=== PATIENT | female | born 1960 | race African-American/Black ===

== ENCOUNTER 2020-01-28 18:33 | Emergency (ER) | payer OTHER ==
[~2020-01-28] VITALS: Ht 165.1 cm; Wt 69.9 kg
[2020-01-28] MEDS ORDERED: ANAPRIL (19:35)
[2020-01-28] MEDS ORDERED: ADULT ASPIRIN81 MG (19:35)
[2020-01-29] MEDS ORDERED: KETO10TA2 PO (07:04)
[2020-01-29] MEDS ORDERED: ORPHENADRINE C100 MG PO (07:04)
== END 2020-01-29 08:30 | disposition home or self-care (01) ==
LOC: ER 18:33
DX: E87.6 Hypokalemia (principal); R68.84 Jaw pain; R20.0 Anesthesia of skin; Z03.818 Encounter for observation for suspected exposure to other biological agents ruled out